=== PATIENT | male | born 1985 | race Caucasian/White ===

== ENCOUNTER 2017-07-26 12:25 | Emergency (ER) | payer BC ==
[2017-07-26] MEDS ORDERED: Lidocaine 1% 20 ML MDV INJECT ONE (13:03)
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
[2017-07-26] MEDS ORDERED: Diphtheria,Pertussis(Acell),Tetanus Vaccine 0.5 ML Syringe IM ONE (13:25)
[2017-07-26] MEDS ORDERED: Bacitracin Oint 1 GM U/D Packet ONE (13:43)
== END 2017-07-26 14:03 | disposition home or self-care (01) ==
LOC: MW.ED 12:25
DX: S61.012A Laceration without foreign body of left thumb without damage to nail, initial encounter (principal); Z23 Encounter for immunization; W26.0XXA Contact with knife, initial encounter
CPT/HCPCS: 90471; 90715; 99282-25

== ENCOUNTER 2018-06-15 21:01 | Observation (INO) | payer BC ==
[2018-06-15] MEDS ORDERED: Sodium Chloride 0.9% 10 ML SDV IV PRN (21:14)
[2018-06-15] MEDS ORDERED: Sodium Chloride 0.9% 10 ML Syringe FLUSH PRN (21:14)
[2018-06-15] MEDS ORDERED: Sodium Chloride 0.9% 2.5 ML Syringe FLUSH PRN (21:14)
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
--- NOTE | 2018-06-15 21:48 | CT ---
INDICATION: Patient with confusion. Stroke protocol. TECHNIQUE: CT head without IV contrast. FINDINGS: No acute intracranial hemorrhage, edema, or mass effect. Fluid in left ethmoidal sinus. Remainder negative. IMPRESSION: 1. No acute or significant intracranial pathology. 2. Focal fluid in left anterior ethmoidal sinuses likely inflammatory. Please note that all CT scans at this facility use dose modulation, iterative reconstruction, and/or weight-based dosing when appropriate to reduce radiation dose to as low as reasonably achievable. Dictated by Eliot Ge MD @ Jun 15 2018 9:45PM Signed by Dr. Eliot Ge @ Jun 15 2018 9:47PM
--- NOTE | 2018-06-15 21:51 | CR ---
Indication : Stroke/trauma? Technique : AP portable chest x-ray FINDINGS: Heart size normal. Lungs clear without infiltrate. Chest otherwise negative without acute disease. Dictated by Eliot Ge MD @ Jun 15 2018 9:48PM Signed by Dr. Eliot Ge @ Jun 15 2018 9:49PM
[2018-06-15 21:56] LABS: CHLORIDE,CL 104 mmol/L (98-107); SODIUM,NA 140 mmol/L (136-148)
[2018-06-15] MEDS ORDERED: Morphine 2 MG/ML Syringe IVPUSH PRN (23:42)
[2018-06-15] MEDS ORDERED: Lactated Ringers 1,000 ML IV SCH (23:45)
[2018-06-16] MEDS: Pantoprazole 40 MG in Sodium Chloride 0.9% 10 ML IVPUSH SCH ×2 (00:19→08:00)
[2018-06-16] MEDS ORDERED: Ibuprofen 200 MG Tab PO ONE (07:56)
--- NOTE | 2018-06-16 09:38 | PCM.SN ---
- Free Text/Narrative Note: pt seen, chart reviewed; h/p dictated [id number]
--- NOTE | 2018-06-16 11:45 | CR ---
EXAMINATION: Right tibia and fibula HISTORY: Pain COMPARISON: None TECHNIQUE: 2 views FINDINGS/IMPRESSION: There is likely a nondisplaced proximal fibular fracture noted. The remaining osseous structures and joint spaces appear intact. Bone mineralization is normal. Ankle mortise and talar dome are intact.
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
== END 2018-06-16 15:30 | disposition home or self-care (01) ==
LOC: MW.ED 21:01 → MW.MS 22:12
PROVIDERS: ADMIT Surgery; ATTEND Surgery
DX: R41.82 Altered mental status, unspecified (principal); S06.0X9A Concussion with loss of consciousness of unspecified duration, initial encounter; M79.661 Pain in right lower leg; Z91.048 Other nonmedicinal substance allergy status; X58.XXXA Exposure to other specified factors, initial encounter
CPT/HCPCS: 36415; 70450; 71045; 73590; 80053; 82962; 84484; 85025; 85610; 85730; 93005; 96374; 96375; 96376; 97161; 99285; A9270; C9113; G0378; J2270; J7050; 99284